=== PATIENT | male | born 1970 | race Caucasian/White ===

== ENCOUNTER 2016-08-07 07:01 | Day surgery (SDC) | payer BC ==
[~2016-08-07 07:01] MED LIST: Buffered Lidocaine 0.9% SYRIN* 5 ML/SYR SYRINGE INTRADERM ONE; celeCOXIB CAP* 200 MG PO ONE
[2016-08-07] MEDS ORDERED: celeCOXIB CAP* 100 MG ONE (07:05)
[2016-08-07] MEDS ORDERED: Clindamycin 900 MG IVPREMIX(* 900 MG/50 ML SDV IV ONE (07:06)
[2016-08-07] MEDS ORDERED: Buffered Lidocaine 0.9% SYRIN* 5 ML/SYR SYRINGE ONE (07:06)
[2016-08-07] MEDS ORDERED: EPINEPHrine AMP 1 MG/ML ONE (08:01)
[2016-08-07] MEDS ORDERED: Bupivacaine 0.5% W/EPI SDV* 10 ML VIAL INJ ONE (08:01)
[2016-08-07] MEDS ORDERED: fentaNYL* 50 MCG/ML 2 ML VIAL (100 MCG VIAL) ONE (08:40)
[2016-08-07] MEDS ORDERED: Lidocaine 2% PF * 5 ML VIAL ONE (08:52)
[2016-08-07] MEDS ORDERED: Propofol* 10 MG/ML 20 ML BTL IV PUSH ONE (08:52)
[2016-08-07] MEDS ORDERED: fentaNYL* 50 MCG/ML 2 ML VIAL (100 MCG VIAL) IV PRN (09:40)
[2016-08-07] MEDS ORDERED: Ondansetron INJ* 2 MG/ML VIAL IV PRN (09:40)
[2016-08-07] MEDS ORDERED: diPHENhydraMINE IV* 50 MG/ML 1 ml VIAL (BENADRYL) IV PRN (09:40)
[2016-08-07 10:19] VITALS: BP 123/75
--- NOTE | 2016-08-08 20:45 | OP ---
OPERATIVE REPORT: DATE OF OPERATION: 08/07/16 DATE OF : 70 SURGEON: Bharat Baig MD ROLL UP MACHINE OPERATOR: JUANPABLO Marcial ANESTHESIOLOGIST: Kodak Liu MD ANESTHESIA: General anesthesia. PRE-OP DIAGNOSES: 1. Right knee medial meniscus tear. 2. Right knee medial femoral condyle, cartilage, articular injury. POST-OP DIAGNOSES: 1. Right knee medial meniscus tear. 2. Right knee medial femoral condyle, articular cartilage injury, diffuse, grade 2 and 3. 3. Right knee patellar articular cartilage injury, grade 1 to 2. OPERATIVE PROCEDURE: 1. Right knee arthroscopic partial medial meniscectomy. 2. Right knee arthroscopic chondroplasty, medial femoral condyle, and patella. 3. Right knee arthroscopic synovectomy, anterior. IV FLUIDS: 400 cc crystalloids. ANTIBIOTICS: 900 mg IV clindamycin. TOURNIQUET TIME: 31 minutes at 300 mmHg. COMPLICATIONS: None. SPECIMEN: None. IMPLANTS: None. ESTIMATED BLOOD LOSS: Minimal. 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 At around that time, the patient was doing much yard work. The patient did note right knee pain, medial, with swelling, that specifically got worse one particular morning. The knee became quite painful with activities of daily living including playing with his young daughters. The right knee would tend to lock in flexion and cause a limp. The patient would attempt to run for recreation and this would cause significant pain. Of note, the patient has a history of a very mild ache with running in the distant past, but this pain was much more severe. The patient soon was not able to run at all, especially after the pain worsened with swelling in March. The patient took advantage of the direct access straight to physical therapy program in [facility]. He went to physical therapy and worked on range of motion and strengthening exercises. He ended up going 3 times a week for 6 weeks. The patient reported no significant change in range of motion with limitation still in place but that his pain had decreased a little bit. His knee was still locking. He was also taking Motrin. Despite the lack of improvement in range of motion and the continued mechanical locking symptoms, the physical therapist suggested that the patient continue physical therapy. Fortunately someone, a friend or family, suggested that the patient see a doctor. On clinic exam, the patient had an antalgic gait and was clearly not fully extending his right knee as he walked. With the patient supine, his passive range of motion of the right knee was 7 to 120 degrees of flexion compared to contralateral knee 10 to 110 degrees of flexion. He had positive medial joint line tenderness to palpation and a positive medial Demian's test. X-rays demonstrated mild medial compartment joint space narrowing and an MRI that I ordered to evaluate for a medial meniscus tear demonstrated a nondisplaced longitudinal, vertical inner half meniscus tear at the posterior horn of the medial meniscus. It also showed some thinning of the articular cartilage focally in several areas about the medial femoral condyle but one area in particular, which had some underlying subchondral edema. There were also some fissures noted in the cartilage of the patella but no loss of articular cartilage volume was evident there. Given the persistent 4 to 5 months loss of full range of motion and mechanical symptoms, the patient opted for operative management. I signed the patient up for surgery, which would include evaluation and treatment of the medial meniscus, likely partial medial meniscectomy, although we briefly discussed possible meniscus repair, this being very unlikely given the location of the meniscus tear. We also discussed evaluation and treatment of medial femoral condyle, articular cartilage to include either no treatment, chondroplasty, or microfracture. We discussed benefits, risks, and potential complications of these procedures and the postoperative rehabilitative courses given each one of the procedures mentioned. In terms of risks and potential complications, I discussed possible bleeding, infection, nerve or blood vessel injury, knee osteoarthritis, knee stiffness, need for reoperation, hardware complications. DESCRIPTION OF PROCEDURE: Preoperative written consent was signed. Operative extremity was marked in preoperative holding. The patient was taken back to the operating room and placed supine on the operating room table. LMA was placed. The patient's right knee was evaluated under anesthesia. He had full extension passively. Range of motion was 0 to 130 degrees of flexion proximally. A tourniquet was placed about the proximal right thigh and the distal right thigh was placed into a circumferential thigh mccartney. The table was elevated and the foot of the table was dropped. The right lower extremity was prepped and draped. Surgical time-out was performed. An Esmarch was applied and tourniquet was elevated to 300 mmHg. Anterolateral knee arthroscopy portal was established. Diagnostic arthroscopy was commenced. Looking in the patellofemoral compartment, there was some clear fraying of the cartilage on the medial aspect of the undersurface of the patella. There was no significant synovitis encountered in this compartment. I then proceeded to the medial compartment. Most notable immediately was some significant damage quite diffusely to the medial femoral condyle articular cartilage. The grade 3 changes were most visible but there was also grade 2 changes taking up much of the central and mesial part of the medial femoral condyle and significant anterior to posterior length. There was also clearly a meniscus tear in the posterior horn of the medial meniscus, oblique in shape. An anteromedial knee arthroscopy portal was established under direct visualization. A probe through this portal was used to better define the shape of the meniscus tear. It was oblique, tracking from inner lateral to peripheral and medial with a parrot beak fragment medial. Working first through the anteromedial and then through the anterolateral portal, I debrided the meniscus tear back to a stable rim of meniscus. I probed the remaining meniscus and it was stable without any flaps or unstable sections. I used an arthroscopic shaver to debride the frayed articular cartilage of the medial femoral condyle. The grade 3 frayed articular cartilage tissue, once that had been debrided with a shaver, always facing either medial or lateral and never proximal or superior. Once I had done chondroplasty throughout the medial femoral condyle, I was able to visualize better the medial femoral condyle articular cartilage damage. There was no location where there was grade 4 change. This was not a focal articular cartilage lesion and the changes were quite widespread. I measured at least 1.5 cm from medial to lateral and anterior to posterior. It was well over 2 cm, taking up much of the volume of the medial femoral condyle. However, after the chondroplasty, the appearance of the articular cartilage looked stable and not in need of additional treatment with still some thickness of articular cartilage remaining. I continued the diagnostic arthroscope. ACL and PCL were intact in the intercondylar notch. There was some synovitis anteriorly, which I debrided with the arthroscopic shaver, some synovitis. The lateral compartment demonstrated no articular cartilage lesions or lateral meniscus tear. I next returned to the patellofemoral compartment. There was no trochlear groove pathology, but the patella along its medial one fourth, had some grade 1 to 2 changes. I did a chondroplasty here. There was some softening of part of the articular cartilage and some grade 2 changes. I debrided any unstable cartilage and left the remaining. Instruments and fluid were removed from the knee. I injected 5 cc of 0.5% Marcaine with epinephrine into the subcutaneous tissue about both incision sites after closing the skin incision sites with [id number] stitches using nylon 4-0 suture. Xeroform, 4x4s, ABD dressing, sterile Webril, Gianni bandages from foot to proximal thigh. Tourniquet was dropped. The patient was awakened. LMA was removed and the patient was brought to the PACU. DISPOSITION: The patient is to be discharged home when medically stable. Crutches as needed for the next several days. Percocet for pain control. Aspirin for 2 weeks for DVT prophylaxis. The patient will follow up with me in 10 to 14 days in clinic. The patient will start physical therapy immediately at the beginning of next week to regain quadriceps function. [id number] #: [id number] MTDD
== END 2016-08-07 10:23 | disposition home or self-care (01) ==
LOC: OR 07:01
PROVIDERS: ATTEND Orthopaedic Surgery
DX: M23.203 Derangement of unspecified medial meniscus due to old tear or injury, right knee (principal); M23.8X1 Other internal derangements of right knee; K21.9 Gastro-esophageal reflux disease without esophagitis
CPT/HCPCS: A9270-GY; J0171; J2704; J3010

== ENCOUNTER 2016-09-21 07:09 | Emergency (ER) | payer BC ==
[2016-09-21 07:19] VITALS: BP 134/90
--- NOTE | 2016-09-21 07:39 | UC ---
Headache HPI - HPI Summary HPI Summary: 45 yo male has had a one week hx of headache/sinus pressure and episodic vertigo This AM both his headache and vertigo have intensified MAGDALENO located at vertex and some retrobulbar pressure no f/c has seasonal allergies no n/v no cp or sob - History Of Current Complaint Chief Complaint: UCDizziness Stated Complaint: DIZZINESS Time Seen by Provider: 09/21/16 07:21 Hx Obtained From: Patient Onset/Duration: Gradual Onset, Lasting Days Onset Of Symptoms: Gradual Currently Pain Is: Moderate Pain Intensity: 7 Pain Scale Used: 0-10 Numeric Timing: Constant Character: Dull Location of Headache: Other: - vtx Aggravating Factor: Position Change Allevating Factors: Rest Associated Signs And Symptoms: Positive: Sinus Pressure - Allergies/Home Medications Allergies/Adverse Reactions: Allergies Allergy/AdvReac Type Severity Reaction Status Date / Time Levofloxacin [From Levaquin] Allergy Severe Hallucinati Verified 09/21/16 07:19 ons Penicillins Allergy Hives Verified 09/21/16 07:19 PMH/Surg Hx/FS Hx/Imm Hx Previously Healthy: Yes - Surgical History Surgical History: Yes Surgery Procedure, Year, and Place: HERNIA- 4 YEARS OLD. EGD. arthroscopy July - Family History Known Family History: Positive: Cardiac Disease, Hypertension, Diabetes - Social History Alcohol Use: Rare Substance Use Type: None Smoking Status (MU): Never Smoked Tobacco Review of Systems Constitutional: Negative Skin: Negative Eyes: Negative ENT: Nasal Discharge, Sinus Congestion, Other - no ringing or roaring in ears Respiratory: Negative Cardiovascular: Negative Gastrointestinal: Negative Genitourinary: Negative Motor: Negative Neurovascular: Negative Musculoskeletal: Negative Neurological: Headache Psychological: Negative All Other Systems Reviewed And Are Negative: Yes Physical Exam Triage Information Reviewed: Yes Appearance: Well-Appearing, No Pain Distress, Well-Nourished Vital Signs: Initial Vital Signs Temp 97.5 F 09/21/16 07:13 Pulse 66 09/21/16 07:13 Resp 16 09/21/16 07:13 BP 134/90 09/21/16 07:13 Pulse Ox 100 09/21/16 07:13 Vital Signs Reviewed: Yes Eyes: Positive: Conjunctiva Clear, Other: - eomi/perrl/fundi benign ENT: Positive: Hearing grossly normal, Nasal congestion, TMs normal, Other: - mild sinus tenderness. Negative: Tonsillar swelling, Tonsillar exudate, Trismus , Muffled/hoarse voice Dental: Negative: Abscess @ Neck: Positive: Supple, Nontender, No Lymphadenopathy Respiratory: Positive: Lungs clear, Normal breath sounds, No respiratory distress, No accessory muscle use Cardiovascular: Positive: RRR, No Murmur. Negative: Tachycardia, Bradycardia Musculoskeletal: Positive: ROM Intact, No Edema Neurological: Positive: Alert, Muscle Tone Normal, Other: - cn2-12 intact, strength 5/5, sensation intact, DTRs symmetric and normal Psychological Exam: Normal Skin Exam: Normal Headache Course/Dx - Differential Dx/Diagnosis Provider Diagnoses: positional vertigo. deviated nasal septum with sinus pressure and pain. ?sinusitis Discharge - Discharge Plan Condition: Stable Disposition: HOME Prescriptions: Cefuroxime Axetil [Ceftin 250 MG] 250 mg PO BID #20 tab Meclizine HCl [Meclizine 25] 25 mg PO QID PRN #20 tab PRN Reason: Vertigo Patient Education Materials: Sinusitis (ED), Vertigo (ED) Referrals: Oscar Brink MD [Primary Care Provider] - 4 Days (recheck in 4-7 days) Additional Instructions: although it is not specifically mentioned in you CT reading you do have a deviated nasal septum and mucousal thickening in you sinuses your BP is a little elevated today and probably a result of not feeling well Have it rechecked at your next visit
--- NOTE | 2016-09-21 08:06 | RAD ---
Indication: Headaches, vertigo. CT of the brain was performed without IV contrast. Intratesticular structures are midline. No midline shift is noted. The extra-axial spaces are unremarkable. There is no evidence of intracranial mass or hemorrhage. No other high or low density lesions are identified. Mastoid air cells and paranasal sinuses are otherwise unremarkable. IMPRESSION: There is no evidence of intracranial mass or hemorrhage.
== END 2016-09-21 08:28 | disposition home or self-care (01) ==
LOC: UCEAST 07:09
DX: H81.10 Benign paroxysmal vertigo, unspecified ear (principal); J34.2 Deviated nasal septum; J34.89 Other specified disorders of nose and nasal sinuses; Z88.0 Allergy status to penicillin
CPT/HCPCS: 70450; 99212; G0463

== ENCOUNTER 2018-10-09 07:27 | Emergency (ER) | payer BC ==
--- OUTSIDE RECORDS SUMMARY | 2018-10-09 07:33 | XMS REPORT | Continuity of Care Document ---
:1970 External Reference #:[id number] Author Name Marielena Ott NP Address [address] [place] [address] Care Team Providers Name Role Phone Oscar Brink - Family Medicine Care Team Information [employer] Driller Helper [phone] Problems Active Problems Provider Date Allergic rhinitis Oscar Brink M.D. Onset: 04/03/2011 Herpes simplex without complication Oscar Brink M.D. Onset: 08/09/2014 Knee pain Oscar Brink M.D. Onset: 07/16/2016 Acute sinusitis Rodney Carrillo M.D. Onset: 02/22/2016 Gastroesophageal reflux disease Oscar Brink M.D. Onset: 08/29/2015 Irritable bowel syndrome Oscar Brink M.D. Onset: 08/29/2015 Anxiety state Ashley Gasca M.D. Onset: 04/24/2015 Acute gastritis Oscar Brink M.D. Onset: 02/23/2015 Social History Type Date Description Comments Sex Unknown Tobacco Use Start: Unknown Nonsmoker ETOH Use Occasionally consumes alcohol Tobacco Use Start: Unknown End: Patient is a former smoker none for almost 20 Unknown years. Smoking Status Reviewed: 12/22/16 Patient is a former smoker none for almost 20 years. Allergies, Adverse Reactions, Alerts Active Allergies Reaction Severity Comments Date Penicillin 03/15/2007 Levaquin 01/27/2010 Medications Active Medications SIG Qnty Indications Ordering Provider Date Doxycycline Hyclate take one by 14caps J01.90 Marielena Vo 10/05/2018 100mg mouth twice ALEX Ott Capsules daily until gone Multivitamins qd Unknown Capsules Loratadine 1 by mouth Unknown 10mg Tablets every day Probiotic 1 tab qd Unknown Fiber 1 tsp in water Unknown qd L-Glutamine 1 tab qd Unknown 500mg Capsules History Medications Doxycycline Hyclate take one by 28capkit Benjamin 07/01/2018 - mouth twice Cameron Byrnes 10/05/2018 100mg Capsules daily until gone Doxycycline Hyclate take one by yanna Vo 04/28/2018 - mouth twice ALEX Ott 07/01/2018 100mg Capsules daily until gone Immunizations CPT Code Status Date Vaccine Lot # [id number] Given 11/13/2017 Influenza Vac, Quadriv[place], [place] [id number] Given 11/27/2016 Influenza Vac, [place]riv[place], [place] [id number] Given 11/14/2015 Influenza Vac, [place]riv[place], [place] [id number] Given 11/09/2011 DO Not Use Split Influenza Virus Vaccine [id number] Given 06/02/2011 Tdap Tetanus, W Pertussis [id number] Given 06/02/2011 MMR Virus Immunization [id number] Vital Signs Date Vital Result Comment 10/05/2018 11:09am BP Systolic 108 mmHg BP Diastolic 72 mmHg Heart Rate 80 /min Body Temperature 97.9 F Respiratory Rate 14 /min Height 66.5 inches 5'6.50" measured 03/02/16 Weight 152.00 lb BMI (Body Mass Index) 24.2 kg/m2 07/01/2018 3:59pm BP Systolic 100 mmHg BP Diastolic 78 mmHg Heart Rate 60 /min Body Temperature 98.2 F Respiratory Rate 12 /min Height 66.5 inches 5'6.50" measured 03/02/16 Weight 161.00 lb BMI (Body Mass Index) 25.6 kg/m2 Results Description No Information Available Procedures Description No Information Available Medical Devices Description No Information Available Encounters Type Date Location Provider Dx Diagnosis Office Visit 07/01/2018 [facility] Sharlene Sheffield Acute sinusitis, 3:30p Cameron Byrnes unspecified Office Visit 04/28/2018 [facility] Marielena Sheffield Acute sinusitis, 5:15p ALEX Ott unspecified Assessments Date Code Description Provider 10/05/2018 [facility] Acute sinusitis, unspecified Marielena Ott NP 07/01/2018 J01.90 Acute sinusitis, unspecified Sharlene Byrnes M.D. 04/28/2018 J01.90 Acute sinusitis, unspecified Marielena Ott NP Plan of Treatment 10/05/2018 - Marileena Ott, NPJ01.90 Acute sinusitis, unspecifiedNew Medication:Doxycycline Hyclate 100 mg - take one by mouth twice daily until goneComments:Call or return with worsening symptoms at any time. If you have not had some improvement by wednesday, please send me a message on the portal.You should be re-evaluated at the office if you have a cough with fever, wheezing, or worsening pain.AllComments:1. Patient has been queried about patient's goals /preferences and functional/lifestyle goals at relevant visits. If relevant, describe: Has been discussed, noted above2. Treatment goals as explainedto the patient: see above3. Are there barriers to meeting treatment goals? Yes If Yes, please describe: Barriers include possible insurance limits, disease process, and difficulty with lifestyle changes4. Self-Management goals as described to the patient: Yes, see above As always, we strongly encourage a healthy diet and making physical activity a part of your every day life. If you have questions about how or where to start, please contact the office. Functional Status Description No Information Available Mental Status Description No Information Available Referrals Description No Information Available
[2018-10-09 07:45] VITALS: BP 136/87
--- NOTE | 2018-10-09 08:01 | UC ---
UC General HPI - HPI Summary HPI Summary: Patient presents to urgent care for evaluation of lesions that have appeared on his lip and mouth after starting doxycycline. Patient states she's been on for 4 days for a sinus infection. Patient states his sinuses feel better but 2 days ago developed these blisters and lesions. Patient states he was on doxycycline in June. Patient states several days following the antibiotics he developed the same type of lesions. Patient states he did not put them together until this bout. Patient denies difficulty swallowing. Patient denies lesions elsewhere. Patient without chest pain or shortness of breath. Patient states his sinuses and ears are better but not completely resolved. Patient has not put anything on the lesions. Patient's been taking Motrin Tylenol for discomfort. 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 Patient medication reviewed this visit. 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 he has no history of cold sores or oh oral breakouts other than those previously mentioned - History of Current Complaint Chief Complaint: UCAllergicReaction Stated Complaint: ALLERGIC REACTION Time Seen by Provider: 10/09/18 07:50 Hx Obtained From: Patient Pain Intensity: 0 - Allergy/Home Medications Allergies/Adverse Reactions: Allergies Allergy/AdvReac Type Severity Reaction Status Date / Time doxycycline Allergy See Comment Verified 10/09/18 08:09 levofloxacin Allergy Hallucinati Verified 10/09/18 07:46 ons Penicillins Allergy Hives Verified 10/09/18 07:46 Home Medications: Home Medications DOXYcycline CAP(*) [DOXYcycline 100MG CAP(*)] 100 mg PO BID 10/09/18 [History Confirmed 10/09/18] L.acidoph,Paracasei, B.lactis [Probiotic] 1 each PO DAILY 10/09/18 [History Confirmed 10/09/18] Multivitamin [Multivitamins] 1 cap PO DAILY 10/09/18 [History Confirmed 10/09/18 ] PMH/Surg Hx/FS Hx/Imm Hx Previously Healthy: Yes - Surgical History Surgical History: Yes Surgery Procedure, Year, and Place: HERNIA- 4 YEARS OLD. EGD. arthroscopy July - Family History Known Family History: Positive: None, Cardiac Disease, Hypertension, Diabetes, Non-Contributory - Social History Occupation: Employed Full-time Lives: With Family Alcohol Use: Rare Substance Use Type: None Smoking Status (MU): Never Smoked Tobacco Review of Systems All Other Systems Reviewed And Are Negative: Yes Constitutional: Positive: Negative Skin: Positive: Rash ENT: Positive: Sinus Congestion, Other - Oral lesions Is Patient Immunocompromised?: No Physical Exam - Summary Physical Exam Summary: Vital Signs Reviewed: Yes A+Ox3, no distress, speaking full easy sentences, no distress Eyes: Conjunctiva Clear, TROY. EOM intact and full ENT: Hearing grossly normal TM x 2 clear, mmoist, uvula midline, no exudate, no erythema Pt with blisters to left upper lip and soft palate. Mild local edema to lip. No intra-oral edema Neck: Positive: Supple Respiratory: Positive: No respiratory distress, No accessory muscle use + CTA throughout no w/r Cardiovascular: RRR nl s1, s2 no m/r CBT <2 sec abd soft + BS nt/nd no guarding, no distension Musculoskeletal Exam: KELLY x 4 without difficulty Strength Intact, ROM Intact Neurological: Positive: Alert, + sensation throughout Psychological: Positive: Normal Response To examiner Skin: Positive: no rash, no ecchymosis lesions isolated to lip and face as noted Triage Information Reviewed: Yes Vital Signs: Initial Vital Signs Temp 98.0 F 10/09/18 07:40 Pulse 72 10/09/18 07:40 Resp 16 10/09/18 07:40 BP 136/87 10/09/18 07:40 Pulse Ox 100 10/09/18 07:40 Course/Dx - Course Course Of Treatment: Patient presents to urgent care for evaluation of lesions on his left upper lip and palate. Patient states this started 3 days after taking doxycycline. Patient reflecting remembers developing similar lesions after taking doxycycline in June. Patient without any difficulty swallowing her secretions. No lesions elsewhere. Patient does have a history of HSV but no history of or lesions related to this that he knows of. Patient's children have been sick and he was concerned may have vgda-ofki-ooh-mouth last week. On exam vital signs are stable. Patient does have blister lesions isolated to his left upper lip as well as his palate. No drainage. Mild local edema to the lip but no intraoral edema. No difficulty with speech or secretions. Along discussion with patient of the 3 possibilities include: 1) reaction to the doxycycline as he had her symptoms with taking Doxy 3 months ago 2) manifestation of herpes simplex virus during the immunocompromised state 3) other viral syndrome that was the cause of his sinus congestion as well as his children's illness. Given the fact that this happened much faster than the last time he is on doxycycline recommend patient started. We'll prescribe Zithromax. Patient has taken this before without difficulty. We'll also give a course of prednisone. I offered patient has she will/which he declined. Encourage Motrin Tylenol. Strict return precautions. Patient states understanding and agreement with plan. Also suggested patient talked to his PCP about possible allergy testing given his different antibiotic allergies. Patient states agreement with plan - Diagnoses Provider Diagnosis: Blister (nonthermal) of oral cavity, initial encounter, Medication reaction Discharge ED - Sign-Out/Discharge Documenting (check all that apply): Patient Departure All imaging exams completed and their final reports reviewed: No Studies - Discharge Plan Condition: Stable Disposition: HOME Prescriptions: Azithromycin 500 mg PO DAILY #7 tablet predniSONE TAB* [Deltasone 20 MG TAB*] 20 mg PO DAILY #11 tab Patient Education Materials: Antibiotic Medication Allergy (ED) Referrals: Oscar Brink MD [Primary Care Provider] - Additional Instructions: As distress, the lesions in your mouth may be related to the antibiotic that you 've been on. Alternately, this may be a virus and unrelated to antibiotics. However, because this is the second time this has occurred after taking the same antibiotic it's recommended that he discontinue Vicodin this time. Also recommended to do the following: - Take Zithromax daily as prescribed until gone - Take prednisone daily for the full course as prescribed - If this is a viral infection spread by secretions. Do not share eating or drinking utensils. Frequent hand washing is important. Clean items that may get your secretions on them such as cell phones, ipads, computer mouse, television remotes. Once your symptoms improved, change your pillowcase and your toothbrush - It is also okay to take Benadryl, 25 mg, every 6 hours as needed for itching if you have any. This medication may cause drowsiness. Do not drive or operate agreement with taking it. - Contact her doctor to schedule follow-up appointment. Discussed the doctor about allergy testing due to your symptoms related potentially to an antibiotic. - If you have any increase in your symptoms such as difficulty breathing or difficulty swallowing, contact 911 or go to the emergency department for further evaluation. - Billing Disposition and Condition Condition: STABLE Disposition: Home
== END 2018-10-09 08:16 | disposition home or self-care (01) ==
LOC: UCEAST 07:27
DX: S00.521A Blister (nonthermal) of lip, initial encounter (principal); T36.4X5A Adverse effect of tetracyclines, initial encounter; X58.XXXA Exposure to other specified factors, initial encounter; Y92.9 Unspecified place or not applicable; Z88.0 Allergy status to penicillin
CPT/HCPCS: 99212; G0463